=== PATIENT | male | born 1965 | race Caucasian/White ===

== ENCOUNTER 2022-09-20 08:21 | Day surgery (SDC) | payer BC ==
[2022-09-20] MEDS ORDERED: Lactated Ringers 1,000 ML IV SCH (09:00)
[2022-09-20] MEDS ORDERED: Versed 2 MG/2 ML Injection ONE (11:01)
[2022-09-20] MEDS ORDERED: DIPRIVAN 200 MG/20 ML IV ONE (11:01)
[2022-09-20] MEDS ORDERED: Xylocaine-Mpf 2% 5 Ml Vial ONE (11:01)
[2022-09-20 12:02] VITALS: O2SAT 97
[2022-09-20 12:50] VITALS: BP 124/78; PULSE 62
--- NOTE | 2022-09-21 08:10 | OP ---
SURGERY DATE/TIME: 09/20/2022 1110 PREOPERATIVE DIAGNOSES: 1) History of increased reflux. 2) Need for screening colonoscopy. POSTOPERATIVE DIAGNOSES: 1) ASA Class II. 2) Mild gastritis. 3) Short segment of salmon pink mucosa distal esophagus, path pending. 4) Small gastric polyp. 5) Small sigmoid colon polyp x2 or 3. 6) Fair slightly limited bowel prep. PROCEDURES: 1) EGD with cold biopsy of small bowel to evaluate Helicobacter pylori. 2) Cold biopsy of gastric polyp. 3) Cold biopsy distal esophagus to evaluate for short segment distal esophagitis versus early Garrett's (salmon pink mucosa biopsy). 4) Colonoscopy to cecum. 5) Hot biopsy polypectomy sigmoid colon polyp x2 or 3. SURGEON: Dr. Cedric Jimenez. ANESTHESIA: MAC. ESTIMATED BLOOD LOSS: Minimal. INDICATIONS: As noted above. Risks and benefits explained in detail but not limited to and consent obtained. DESCRIPTION OF PROCEDURE AND FINDINGS: The patient is taken to the endoscopy room. MAC anesthesia induced. After official time out and no disagreement with planned procedure, bite block positioned. Video gastroscope easily passed down the esophagus to the patent pylorus to the third and second portion of the duodenum. Just slightly a flattening of a fold cold biopsy taken for evaluation. There were no signs of any ulcers or other lesions. The scope is pulled back in the stomach. He did have some gastric erythema with signs of minimal to mild gastritis. Cold biopsy taken. Good hemostasis noted for Helicobacter pylori. Also, he had small gastric polyp in the fundus area that is removed with cold biopsy polypectomy. He did not have any evidence of any hiatal hernia. The scope is straightened. The gastroesophageal junction 40 cm. There was a short segment probably 0.5 cm of salmon pink mucosa extending up the esophagus. Whether this is early esophagitis versus early Garrett's versus normal variation, cold biopsy taken. Good hemostasis noted. The remainder of the esophagus grossly unremarkable. Attention is then turned to colonoscopy. Digital rectal exam did not reveal any rectal masses. Video colonoscope inserted and passed up the slightly tortuous sigmoid, descending, transverse, ascending colon around to the cecum. Appendiceal orifice and valve well visualized and photo documented. Prep overall was fair but on limited side as there is a lot of liquidy, semisolid stool suction irrigated as clear as possible. The scope is then carefully withdrawn over the next eight minutes. Suctioning and irrigating the stool out as well as possible. Back in the sigmoid colon he had two or three small early polyps versus hyperplastic lesion removed with hot biopsy forceps. Good hemostasis noted versus hyperplasia of mucosa. Good hemostasis noted. Otherwise, no signs of any large polyps, masses or obstructing lesions. Again, he had a fair bowel prep. If the path is benign, likely would recommend considering follow up in five years given the prep quality. Again, no signs of any large polyps, masses or obstructing lesions. The scope is withdrawn. Findings were discussed with his , Travis.
== END 2022-09-20 12:40 | disposition home or self-care (01) ==
LOC: SDC 08:21
PROVIDERS: ATTEND Surgery
DX: Z12.11 Encounter for screening for malignant neoplasm of colon (principal); Z87.19 Personal history of other diseases of the digestive system; K29.70 Gastritis, unspecified, without bleeding; K31.7 Polyp of stomach and duodenum; K63.5 Polyp of colon
CPT/HCPCS: J2250; J2704

== ENCOUNTER 2025-01-07 08:37 | Day surgery (SDC) | payer BC ==
[~2025-01-07 08:37] MED LIST: Lactated Ringers 1,000 ML IV ONE
--- NOTE | 2025-01-07 08:53 | HP ---
HISTORY OF PRESENT ILLNESS: A 59-year-old gentleman with a history of some Garrett's in the past. He needs followup endoscopy. He had some benign polyps in the past, some loose stools a lof of gas, some better now after improving his diet. He needs followup screening colonoscopy. PAST MEDICAL HISTORY: Hypertension, gout. PAST SURGICAL HISTORY: Appendectomy. FAMILY HISTORY: Heart disease, lung cancer. SOCIAL HISTORY: Occasional alcohol use, no abuse. Used to smoke with tobacco, now denies smoking. MEDICATIONS: Omeprazole, vitamin D3, vitamin C, multivitamins, allopurinol, Bystolic. ALLERGIES: CODEINE. REVIEW OF SYSTEMS: Twelve systems reviewed. No chest pain or palpitations. Other systems negative or noncontributory as above and per preadmission questionnaire. PHYSICAL EXAMINATION: VITAL SIGNS: Height 5 feet 10 inches. BMI 27.96. GENERAL: No acute distress. HEENT: Sclerae nonicteric. NECK: No JVD. CHEST: Equal excursion, nonlabored breathing. CARDIOVASCULAR: Regular rate and rhythm. ABDOMEN: Soft. EXTREMITIES: No cyanosis or edema. NEUROLOGIC: Alert and oriented. Moving all extremities symmetrically. PSYCHIATRIC: Appropriate mood and affect. SKIN: Dry. RECTAL: Deferred until time of endoscopy exam. IMPRESSION: Past history of questionable Garrett's. Needs followup EGD for evaluation. Also needs followup screening colonoscopy. He had some polyps in the past. Risks explained in detail including bleeding, infection; risk of bowel injury or perforation; risk of missed or nondiagnosis or incomplete exam possibly requiring barium enema or barium swallow or other studies or procedures; general risk of anesthesia, sedation; risk of bowel prep, not limited to. We will proceed with outpatient EGD, colonoscopy under MAC anesthesia. Otherwise, continue medications for hypertension.
[2025-01-07 09:12] VITALS: RESP 16
[2025-01-07] MEDS: Lactated Ringers 1,000 ML IV SCH (09:19)
[2025-01-07 09:44] LABS: ANION GAP 15.1 MEQ/L (5-15); Calcium 9.4 mg/dL (8.4-10.2); Creatinine 1 0.89 mg/dL (0.66-1.25); EST GLOMERULAR FILTRATION RATE 98.1 ML/MIN
[2025-01-07 09:45] LABS: Potassium 4.4 mmol/L (3.5-5.1)
[2025-01-07] MEDS ORDERED: propofoL IV ONE ×2 (10:48→11:02)
[2025-01-07 11:40] VITALS: TEMP 96.1; O2SAT 100
[2025-01-07 11:51] VITALS: BP 153/90; PULSE 47
--- NOTE | 2025-01-08 13:02 | OP ---
SURGERY DATE/TIME: 01/07/2025 [id number] PREOPERATIVE DIAGNOSES: 1) History of polyps, here for followup screening colonoscopy. 2) History of question of Garrett's in the past, need for followup upper endoscopy. POSTOPERATIVE DIAGNOSES: 1) Erosive gastritis. 2) Short segment distal esophagus with a small patchy area of some salmon pink mucosa. Evaluate for early esophagitis versus intestinal metaplasia. Pathology pending. 3) Ascending colon polyp. 4) Rectal polyp. 5) Fair bowel prep. 6) Withdrawal time was approximately 12 minutes. ASA class 2. PROCEDURE: 1) Esophagogastroduodenoscopy with cold biopsy of the antrum for H pylori, cold biopsy of small benign-appearing gastric polyp. 2) Cold biopsy distal esophagus. Pathology pending. 3) Colonoscopy to cecum. 4) Hot snare polypectomy of ascending colon polyp. 5) Hot biopsy polypectomy of small rectal polyp versus hyperplastic lesion. SURGEON: Chirag Jimenez MD ANESTHESIA: MAC. ESTIMATED BLOOD LOSS: Minimal. INDICATIONS: Consent was obtained. DESCRIPTION OF PROCEDURE AND FINDINGS: Patient was taken to the operating room. MAC anesthesia induced. After official time-out, no disagreement in planned procedure. Bite block positioned. Videogastroscope easily passed down the esophagus through the patent pylorus to the junction of third and fourth portions of duodenum. The duodenum was grossly unremarkable. Back in the stomach, he had evidence of erosive gastritis in the proximal part of the antrum, moderate erosive gastritis. There was no evidence of any greg ulceration. Cold biopsy was taken to evaluate for H pylori. On retroflex, the GE junction was fairly snug against the scope. Scope was pulled back up. GE junction was about 40 cm. There was a little tiny island or 2 of salmon pink mucosa right next to the GE junction. This was a short segment of some intestinal metaplasia versus just some early inflammation. Cold biopsies were taken. There were no signs of any erosions. There were no signs of any long salmon pink mucosa tongue at this time. There was no evidence of that, just some few small patchy salmon pink islands, 1-1/2 to 2 mm. Cold biopsy was taken of the distal esophagus. The only other finding was back in the stomach. There was benign-appearing gastric polyp that was biopsied. It had the appearance of fundic gland polyp. Good hemostasis was noted. Remainder of the esophagus was grossly unremarkable. Scope was withdrawn. Patient tolerated the procedure well. Attention was then turned to colonoscopy. Digital rectal exam did not reveal any rectal masses. Videocolonoscope inserted and passed up, reached just a few centimeters away from the ileocecal valve with ease but was a little bit tortuous at this point requiring 2 different staff members and eventually positioned on his back to be able to see the appendiceal orifice. The appendiceal orifice was visualized and photo documented as well as the valve. Prep overall was fair. There was a little bit of liquidy semi-solid stool throughout the colon. Some areas were really clean. Some areas had some liquidy semi-solid stool. They were suctioned and irrigated clear as possible. Scope was carefully withdrawn over the next 12 minutes. There was a 3 to 3-1/2 mm polyp that was removed with hot snare polypectomy in the ascending colon. Good hemostasis was noted. The staff said it was retrieved. Scope was then pulled around to the left colon. There were a few little tiny scattered early diverticula. No large ones, just a few tiny indentations. Good hemostasis noted. Otherwise, the rectum had a 2 mm early polyp versus hyperplastic lesion that was removed with a hot biopsy forceps. Good hemostasis noted. Scope was withdrawn. The patient tolerated the procedure well. Findings discussed with his out in the waiting area.
== END 2025-01-07 11:58 | disposition home or self-care (01) ==
LOC: SDC 08:37
PROVIDERS: ATTEND Surgery
DX: Z12.11 Encounter for screening for malignant neoplasm of colon (principal); Z09 Encounter for follow-up examination after completed treatment for conditions other than malignant neoplasm; Z86.0100 Personal history of colon polyps, unspecified; Z80.1 Family history of malignant neoplasm of trachea, bronchus and lung; Z87.19 Personal history of other diseases of the digestive system; K29.70 Gastritis, unspecified, without bleeding; K63.5 Polyp of colon; K62.1 Rectal polyp
CPT/HCPCS: 36415; 80048; 93005; J2704